=== PATIENT | male | born 2000 | race Caucasian/White ===

== ENCOUNTER 2020-06-25 13:02 | Outpatient (CLI) | payer OTHER, SELFPAY ==
[2020-06-25 13:58] LABS: SARS-CoV-2 Ag Positive (Negative)
== END 2020-06-25 13:03 | disposition home or self-care (01) ==
PROVIDERS: PCP Family Medicine; Visit Provider Family Medicine
DX: U07.1 COVID-19 (principal)
CPT/HCPCS: 87426